=== PATIENT | male | born 1945 | race Caucasian/White ===

== ENCOUNTER 2016-12-03 05:56 | Day surgery (SDC) | payer MEDICARE ==
[2016-12-03] MEDS ORDERED: DIPRIVAN 200 MG/20 ML IV ONE (05:57)
[2016-12-03] MEDS ORDERED: Ketamine HCl 50 MG/ML IJ ONE (05:57)
[2016-12-03] MEDS ORDERED: Lactated Ringers 1,000 ML IV SCH (06:00)
[2016-12-03 08:32] VITALS: O2SAT 97
[2016-12-03 08:34] VITALS: BP 148/92; PULSE 77
--- NOTE | 2016-12-03 11:47 | OP ---
SURGERY DATE/TIME: 12/03/2016 0655 PREOPERATIVE DIAGNOSIS: Screening exam. POSTOPERATIVE DIAGNOSIS: Normal colon. PROCEDURE: Colonoscopy. SURGEON: Dr. Katz. ANESTHESIA: MAC. Medications given by anesthesia department. HISTORY: The patient is a 71 year-old white male patient presenting now for screening colonoscopy. He reports that he has had polyps removed more than ten years ago. He has had no problems in the interim. He is here now for screening evaluation. He was appraised of the risks of the procedure including the risk of perforation, phlebitis, untoward reaction to medication, bleeding and missed lesions. The patient verbalized his understanding and desired to have the procedure performed. DESCRIPTION OF PROCEDURE: The patient was given the medications by the anesthesia department. He had continuous pulse oximetry, ECG monitoring, intermittent blood pressure monitoring, and tidal CO2 monitoring during the examination. He was placed in the left lateral decubitus position. A digital rectal examination was performed and revealed normal anal sphincter tone and no masses and normal prostate. The flexible Olympus pediatric colonoscope was used to intubate the rectum. A view of the colon was developed sequentially to the cecum. Upon insertion and withdrawal, including a retroflex view in the rectum, no mucosal lesions were encountered. The scope was removed from the patient who tolerated the procedure well and was sent back to OP recovery in good condition. The prep is noted to be fair to good.
== END 2016-12-03 08:30 | disposition home or self-care (01) ==
LOC: SDC 05:56
PROVIDERS: ATTEND Family Medicine
PROC: 0DJD8ZZ Inspection of Lower Intestinal Tract, Via Natural or Artificial Opening Endoscopic (ICD-10-PCS; principal; 2016-12-03)
DX: Z12.11 Encounter for screening for malignant neoplasm of colon (principal); Z86.010 Personal history of colon polyps; J44.9 Chronic obstructive pulmonary disease, unspecified; E11.9 Type 2 diabetes mellitus without complications
CPT/HCPCS: 82962; G0105; 00740; J2704

== ENCOUNTER 2020-05-18 06:12 | Emergency (ER) | payer MEDICARE ==
[2020-05-18] MEDS ORDERED: DUONEB 0.5-3 MG/3 ml Neb IH ONE ×2 (06:34→06:54)
[2020-05-18] MEDS ORDERED: BABY ASPIRIN 81 MG CHEW PO ONE (06:34)
[2020-05-18] MEDS ORDERED: BABY ASPIRIN 81 MG CHEW ONE (06:38)
[2020-05-18 06:44] LABS: Absolute Neutrophil Ct (ANC) 3.89 (1.4-6.9); BASOPHIL % 0.4 % (0.0-0.4); Basophil (Absolute #) 0.03 (0-0.4); Eosinophil % 4.1 % (0.00-5.0); Eosinophil (Absolute #) 0.28 (0-0.5); Hematocrit 44.2 % (42-50); Hemoglobin 15.2 gm/dl (12.5-18.0); Lymphocyte (Absolute #) 1.62 (1.0-4.6); Lymphocytes % 23.9 % (24.0-44.0); Mean Cell Volume 96.1 fl (78-100); Mean Corpuscular Hgb Concent. 34.4 g/dl (32-36); Mean Platelet Volume 10.2 fl (7.5-11.0); Monocyte (Absolute #) 0.95 (0.0-1.3); Neutrophil % 57.6 % (36.0-66.0); Platelet Count 228 K/mm3 (150-450); Red Cell Distribution Width 12.9 % (11.5-14.0); White Blood Count 6.8 K/mm3 (4.0-10.5)
--- NOTE | 2020-05-18 06:58 | ERPHSYRPT ---
- History of Present Illness Source: patient Exam Limitations: no limitations Patient Subjective Stated Complaint: "I'm having trouble breathing." Triage Nursing Assessment: Reported onset of dyspnea yesterday that has worsened throghought the night. He does wear a CPAP. Denied supplemental oxygen. Denied headache, dizziness, chest pain, fevers, cold sweats, N/V/D. Did not use home inhaler prior to coming in. Pupils 3mm bilateral. Oral mucosa pink/moist. Neck supple non-tender without JVD or lymphadenopathy. Symmetrical chest expansion. heart tones S1/S2 regular rate and rhythm. Lungs vesicular with adequate airflow in the upper reza and slightly diminished airflow in the lower lobes. Abdomen obese non-tender. Peripheral pulses +2 bilateral. no noted dependent edema. Timing/Duration: today, sudden, improved Activities at Onset: sleep Severity of Dyspnea-Max: moderate Severity of Dyspnea-Current: moderate Possible Cause: occasional episodes Modifying Factors: Improves With: oxygen. Worsens With: lying down Associated Symptoms: No cough, No edema, No fever, No heaviness, No light headedness, No muscle spasms hands, No painful breathing, No productive cough, No tightness Hx Tetanus, Diphtheria Vaccination/Date Given: No Hx Influenza Vaccination/Date Given: Yes Hx Pneumococcal Vaccination/Date Given: Yes <ALANA LONG - Last Filed: 05/18/20 06:58> <NIKKI VARGAS - Last Filed: 05/18/20 07:34> - History of Present Illness Time Seen by Provider: 05/18/20 06:36 Physician History: 74 years old male with history of diabetes mellitus, hypertension, hyperlipidemia, obstructive sleep apnea presented in the ER with chief complaint of shortness of breath waking him up around 3 AM. Patient reports he was feeling as if his oxygen is going down. He continues to feel short of breath and try to sleep again but lying down was making it worse. Unable to related with exertion. Denies any associated chest pain or palpitations. Denies any fever or chills. Patient got second Covid vaccine shot 2 days ago and does have some aches and pains all over. Reports having similar episodes of shortness of breath occasionally but usually resolves pretty quickly within a few minutes. (ALANA LONG) Allergies/Adverse Reactions: No Known Drug Allergies Allergy (Unverified 05/18/20 06:14) Home Medications: Albuterol 2.5 mg/3 ml Neb [Proventil 2.5 mg/3 ml Neb] 2.5 mg IH Q12H PRN PRN 11/30/16 [History] Allopurinol 300 mg [Zyloprim 300 mg] 150 mg PO DAILY 11/30/16 [History] Ascorbic Acid [Vitamin C] 1,000 mg PO DAILY 11/30/16 [History] Aspirin 81 gm Chew [Baby Aspirin 81 mg Chew] 81 mg PO DAILY 11/30/16 [History] Cholecalciferol (Vitamin D3) [Vitamin D] 1,000 unit PO DAILY 11/30/16 [History] Clopidogrel Bisulfate 75 mg [PLAVIX 75 MG Tablet] 75 mg PO DAILY 11/30/16 [History] Multivitamin [Daily Multiple Vitamin] 1 each PO DAILY 11/30/16 [History] Rosuvastatin Calcium [Crestor] 20 mg PO HS 11/30/16 [History] Ubidecarenone [Co Q-10] 100 mg PO DAILY 11/30/16 [History] Vitamin B Complex 1 each PO DAILY 11/30/16 [History] Vitamin E (Dl,Tocopheryl Acet) [Vitamin E] 1,000 unit PO DAILY 11/30/16 [History] hydroCHLOROthiazide [Hydrochlorothiazide] 12.5 mg PO DAILY 11/30/16 [History] Metformin HCl [Glucophage] 1 tab PO DAILY 05/18/20 [History] Travel Risk - International Travel Have you traveled outside of the country in past 3 weeks: No - Coronavirus Screening Are you exhibiting any of the following symptoms?: No Close contact with a COVID-19 positive Pt in past 14-21 Days: No - Vaccine Status Have you recieved a Covid-19 vaccination: Yes Financial Administrative Assistant: [employer] - Vaccination Dates Date of 2cond Vaccination (if applicable): 05/16/20 <ALANA LONG - Last Filed: 05/18/20 06:58> - Review of Systems Constitutional: No Symptoms Eyes: No Symptoms Ears, Nose, & Throat: No Symptoms Respiratory: Dyspnea Cardiac: No Symptoms Abdominal/Gastrointestinal: No Symptoms Genitourinary Symptoms: No Symptoms Musculoskeletal: Myalgias Skin: No Symptoms Neurological: No Symptoms Psychological: No Symptoms Endocrine: No Symptoms Hematologic/Lymphatic: No Symptoms Immunological/Allergic: No Symptoms <ETHANALANA Last Filed: 05/18/20 06:58> - Past Medical History Pertinent Past Medical History: Yes Neurological History: TIA ENT History: No Pertinent History Cardiac History: Coronary Artery Disease Respiratory History: COPD Endocrine Medical History: Diabetes Type II Musculoskeletal History: No Pertinent History GI Medical History: Irritable Bowel History: No Pertinent History Psycho-Social History: No Pertinent History Male Reproductive Disorders: No Pertinent History - Past Surgical History Past Surgical History: Yes Neuro Surgical History: No Pertinent History Cardiac: Cardiac Catheterization Respiratory: No Pertinent History Gastrointestinal: No Pertinent History Genitourinary: No Pertinent History Musculoskeletal: No Pertinent History Male Surgical History: No Pertinent History Other Surgical History: heart cath x two--ten yrs apart - Social History Smoking Status: Former smoker Exposure to second hand smoke: No Drug Use: none Patient Lives Alone: No <ALANA LONG Last Filed: 05/18/20 06:58> - Physical Exam General Appearance: no apparent distress, alert, anxiety Eye Exam: PERRL/EOMI, eyes nml inspection Ears, Nose, Throat Exam: hearing grossly normal, normal ENT inspection, normal pharynx Neck Exam: normal inspection, non-tender, full range of motion Respiratory Exam: normal breath sounds, lungs clear Cardiovascular/Chest Exam: normal heart sounds, regular rate/rhythm Abdominal/Gastrointestinal Exam: soft, normal bowel sounds, No tenderness Extremity Exam: non-tender, normal range of motion Neurologic Exam: alert, oriented x 3, cooperative Skin Exam: normal color SpO2 Interpretation: normal SpO2: 97 O2 Delivery: Room Air <ALANA LONG - Last Filed: 05/18/20 06:58> - Nursing Vital Signs Nursing Vital Signs: Initial Vital Signs Pulse Rate 85 05/18/20 06:12 Respiratory Rate 18 05/18/20 06:12 Blood Pressure 162/86 05/18/20 06:12 O2 Sat by Pulse Oximetry 97 05/18/20 06:12 Pain Scale Pain Intensity 0 - Course EKG Interpreted by Me: RATE (80), Sinus Rhythm, NORMAL AXIS, NORMAL INTERVALS, Other (Nonspecific intraventricular conduction delay) <ALANA LONG Last Filed: 05/18/20 06:58> - Radiology Exams Chest X-ray Interpretation: Reviewed by me, Negative, No Pneumonia <ALICIA,NIKKI - Last Filed: 05/18/20 07:34> Ordered Tests: Active Orders 24 hr Category Date Time Status Tripe Washer STAT Care 05/18/20 06:32 Active EKG-ER Only STAT Care 05/18/20 06:30 Active IV Insertion STAT Care 05/18/20 06:30 Active Pulse Oximetry (ED) STAT Care 05/18/20 06:30 Active CHEST 1 VIEW (PORTABLE) Stat Exams 05/18/20 06:32 Taken CBC W DIFF Stat Lab 05/18/20 06:20 Completed CMP Stat Lab 05/18/20 06:20 Completed D-DIMER QUANTITATIVE Stat Lab 05/18/20 06:20 Completed NT PRO BNP Stat Lab 05/18/20 06:20 Completed TROPONIN Q3H Lab 05/18/20 06:45 Ordered TROPONIN Q3H Lab 05/18/20 09:45 Ordered Respiratory Therapy Assessment DAILY RT 05/18/20 07:01 Active Medication Summary Discontinued Medications Generic Name Dose Route Start Last Admin Trade Name Gideonq PRN Reason Stop Dose Admin Albuterol/Ipratropium 3 ml 05/18/20 06:34 05/18/20 06:56 Duoneb 0.5-3 Mg/3 Ml Neb IH 05/18/20 06:35 3 ml STAT ONE Administration Albuterol/Ipratropium Confirm 05/18/20 06:54 Duoneb 0.5-3 Mg/3 Ml Neb Administered 05/18/20 06:55 Dose 3 ml IH .STK-MED ONE Aspirin 324 mg 05/18/20 06:34 05/18/20 06:37 Baby Aspirin 81 Mg Chew PO 05/18/20 06:35 324 mg STAT ONE Administration Aspirin Confirm 05/18/20 06:38 Baby Aspirin 81 Mg Chew Administered 05/18/20 06:39 Dose 324 mg .ROUTE .STK-MED ONE Lab/Rad Data: Laboratory Result Diagrams 05/18/20 06:20 05/18/20 06:20 Laboratory Results 05/18/20 05/18/20 05/18/20 Range/Units 06:20 06:20 06:20 WBC 6.8 (4.0-10.5) K/mm3 RBC 4.60 (4.1-5.6) M/mm3 Hgb 15.2 (12.5-18.0) gm/dl Hct 44.2 (42-50) % MCV 96.1 (78-100) fl MCH 33.0 H (26-32) pg MCHC 34.4 (32-36) g/dl RDW 12.9 (11.5-14.0) % Plt Count 228 (150-450) K/mm3 MPV 10.2 (7.5-11.0) fl Gran % 57.6 (36.0-66.0) % Eos # (Auto) 0.28 (0-0.5) Absolute Lymphs (auto) 1.62 (1.0-4.6) Absolute Monos (auto) 0.95 (0.0-1.3) Lymphocytes % 23.9 L (24.0-44.0) % Monocytes % 14.0 H (0.0-12.0) % Eosinophils % 4.1 (0.00-5.0) % Basophils % 0.4 (0.0-0.4) % Absolute Granulocytes 3.89 (1.4-6.9) Basophils # 0.03 (0-0.4) D-Dimer 556 H* (215-500) ng/mL Sodium 138 (137-145) mmol/L Potassium 3.9 (3.5-5.1) mmol/L Chloride 103 (98-107) mmol/L Carbon Dioxide 27 (22-30) mmol/L Anion Gap 12.7 (5-15) MEQ/L BUN 14 (9-20) mg/dL Creatinine 0.73 (0.66-1.25) mg/dL Estimated GFR > 60.0 ML/MIN Glucose 203 H (74-106) mg/dL Calcium 10.0 (8.4-10.2) mg/dL Total Bilirubin 0.70 (0.2-1.3) mg/dL AST 41 (17-59) U/L ALT 32 (0-50) U/L Alkaline Phosphatase 80 (38-126) U/L NT-Pro-B Natriuret Pep 53.8 (0-900) pg/mL Serum Total Protein 7.7 (6.3-8.2) g/dL Albumin 4.5 (3.5-5.0) g/dL CXR no infiltrates (NIKKI VARGAS) - Progress Air Movement: fair <ALANA LONG - Last Filed: 05/18/20 06:58> - Progress Progress: improved Air Movement: good Counseled pt/family regarding: lab results, diagnosis, need for follow-up, rad results <NIKKI VARGAS - Last Filed: 05/18/20 07:34> - Progress Progress Note: 05/18/20 06:57 74 years old is evaluated for sudden onset shortness of breath since 3 AM. EKG showed sinus rhythm with no acute ST elevations. Patient is maintaining oxygen saturation around 96% on room air, will give breathing treatment. Not in any distress. Work-up is pending, care is transferred to at shift change for reevaluation and final disposition. 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 The patient was counseled regarding Diagnosis,Lab results, Imaging studies, need for follow up and when to return to the Emergency Room. Prescriptions given: Discharge Note I have spoken with the patient and/or caregivers. I have explained the patient's condition, diagnosis and treatment plan based on the information available to me at this time. I have answered the patient's and/or caregiver's questions and addressed any concerns. The patient and/or caregivers have as good understanding of the patient's diagnosis, condition and treatment plan as can be expected at this point. The vital signs have been stable. The patient's condition is stable and appropriate for discharge from the emergency department. The patient will pursue further outpatient evaluation with the primary care physician or other designated or consulting physician as outlined in the discharge instructions. The patient and/or caregivers are agreeable to this plan of care and follow-up instructions have been explained in detail. The patient and/or caregivers have received these instruction. The patient/and or caregivers are aware that any significant change in condition or worsening of symptoms should prompt an immediate return to this or the closest emergency department or call 911. LOGAN BACON MAYRA was seen on 05/18/20 n the Emergency Room. At that time you were treated for an emergent condition, during your visit Laboratory, Radiology and/or other procedures may have been ordered. It is very important that you follow-up with your Primary Care Physician MAYRA MURILLO within the next 24-48 hours to review your Emergency Room visit and the final results o f testing that was ordered. Some test results such as Urine Cultures, Blood Cultures, and other cultures if ordered will not be finalized for 24-48 hours. If you do not have a Primary Care Provider please call the medical records department at [phone] to obtain a copy of your results or you may sign into our patient portal to obtain these results by visiting us @ [email or web address] and completing the following steps: 1. Click on the Patient Portal link 2. Click the Patient Self Enrollment Link to complete the enrollment form and entering your 3. Once the enrollment form is completed you will receive an email with a temporary ID and password at the email address you provided. 4. Next choose a user name and password. Your user name must be at least 4 characters long and your password must be at least 4 characters long. 5. Choose a security question from the list and provide your answer to the question. If you already have signed into the Health Portal you may access your Health Care Information 30/08 by the following steps: 1. Login to our website @ [email or web address] 2. Enter your original user name and password. FAQS The [facility] Health Portal is an online tool that contains your Lab Results, Radiology Reports, Visit History, Discharge Instructions and Health Summary Lab and Radiology Results will not be available for 72 hours on the portal. The Portal is a secure site, passwords are encryted and URLs are re-written so they cannot be copied and pasted. You and authorized family members are the only ones who can access your Portal. Also there is a timeout feature that protects your information if you leave the Portal page open. If you have technical difficulty please use the Contact Us link on the page this will allow you to submit any questions you have regarding the Portal or you may contact the Medical Record Department at [phone] ext [phone].
[2020-05-18 07:05] LABS: ALBUMIN 4.5 g/dL (3.5-5.0); ALKALINE PHOSPHATASE 80 U/L (38-126); ANION GAP 12.7 MEQ/L (5-15); BLOOD UREA NITROGEN 14 mg/dL (9-20); CHLORIDE 103 mmol/L (98-107); Carbon Dioxide 27 mmol/L (22-30); Creatinine 1 0.73 mg/dL (0.66-1.25); EST GLOMERULAR FILTRATION RATE > 60.0 ML/MIN; Glucose 203 mg/dL (74-106); NT PRO BNP 53.8 pg/mL (0-900); Potassium 3.9 mmol/L (3.5-5.1); SGOT/AST 41 U/L (17-59); SGPT/ALT 32 U/L (0-50); SODIUM 138 mmol/L (137-145); Total Protein 7.7 g/dL (6.3-8.2)
--- NOTE | 2020-05-18 08:21 | XRAY ---
Indication: Short of breath. Comparison: None Portable chest demonstrates minimal right base fibrosis/scarring. No focal infiltrate, consolidation, or large effusion. Heart not enlarged. Bony thorax intact with mild degenerative changes.
[2020-05-18 08:22] VITALS: BP 140/64; PULSE 75; O2SAT 95
== END 2020-05-18 07:57 | disposition home or self-care (01) ==
LOC: ED 06:12
DX: T88.1XXA Other complications following immunization, not elsewhere classified, initial encounter (principal); I10 Essential (primary) hypertension; E78.5 Hyperlipidemia, unspecified; G47.33 Obstructive sleep apnea (adult) (pediatric); E11.9 Type 2 diabetes mellitus without complications; Z79.899 Other long term (current) drug therapy
CPT/HCPCS: 36000; 36415; 71045; 80053; 83880; 84484; 85025; 85379; 93005; 93041; 94640; 94760; 99284; A9270-GY